=== PATIENT | female | born 1945 | race Hispanic/Latino ===

== ENCOUNTER 2019-08-28 18:36 | Emergency (ER) | payer OTHER ==
[~2019-08-28] VITALS: Ht 152.4 cm; Wt 68.0 kg
[~2019-08-28 18:36] MED LIST: AMLODIPINE BESYL5 MG PO; BISOPROLOL/HCTZ PO; LOSARTAN PO; LOVASTATIN40 MG PO
[2019-08-28] MEDS ORDERED: HYDRALAZINE HCL 25 MG TAB PO ONE (19:15)
== END 2019-08-28 20:52 | disposition home or self-care (01) ==
LOC: ER 18:36
DX: I16.0 Hypertensive urgency (principal); H40.9 Unspecified glaucoma
CPT/HCPCS: 93005; 99283